=== PATIENT | female | born 2000 | race Caucasian/White ===

== ENCOUNTER 2023-08-16 19:50 | Emergency (ER) | payer OTHER, BC, MEDICAID, SELFPAY ==
[2023-08-16 19:54] VITALS: BP 157/95; PULSE 90; RESP 17; TEMP 36.8; O2SAT 100; BMI 28.3
[2023-08-16 21:00] VITALS: O2SAT 99
--- NOTE | 2023-08-16 21:23 | ED_ITS ---
HPI - COVID General: Chief Complaint: COVID symptoms Stated Complaint: coughing, congested Time Seen by Provider: 08/16/23 21:00 History of Present Illness: Patient presents to the ER for not feeling well having cough and congestion. Patient states she was around 2 people tested positive for COVID patient is worried she has COVID and like tested. Patient did take her home test that was positive but she wants further confirmation. COVID Results: SARS-CoV-2 Antigen (Rapid) positive (Negative) H 08/16/23 21:1 7 Review of Systems General: Reports: 10 or more systems reviewed and unremarkable except in HPI and below PFSH ED PFSH: Medical History Migraine headache Physical Exam Const: COMMON NORMALS: no acute distress, average body habitus, patient oriented x3, no limitations, healthy appearing, alert and well nourished HENMT: COMMON NORMALS: normocephalic, hearing grossly normal bilaterally, external ears normal, Normal external nose present and moist oral mucous membranes HEAD & SCALP: normocephalic NOSE: Normal external nose present EXTERNAL EAR: Yes external ears normal Neck/C-Spine: COMMON NORMALS: full ROM, no lymphadenopathy, supple, no meningeal signs, no JVD and Thyroid normal THYROID: Thyroid normal Chest: COMMONS NORMALS: normal inspection of the chest and normal palpation of entire chest wall Resp: COMMON NORMALS: normal respiratory effort, No retractions, No use of accessory muscles and clear to auscultation bilaterally AUSCULTATION: clear to auscultation bilaterally Cardio: COMMON NORMALS: no JVD, regular rate, regular rhythm, S1 normal heart sound present, S2 normal heart sound present, No gallops present (Cardio), No clicks present (Cardio), No murmurs present (Cardio) and No rub (Cardio) RATE: regular rate RHYTHM: regular rhythm HEART SOUNDS: S1 normal heart s ound present and S2 normal heart sound present GI: COMMON NORMALS: Normal to inspection, nondistended, normoactive bowel sounds present, Soft to palpation, non-tender, No hepatosplenomegaly present and no masses PALPATION: Yes Soft to palpation and Yes No hepatosplenomegaly present : COMMON NORMALS: Yes no CVA tenderness BLADDER/KIDNEY EXAM: Yes no CVA tenderness Back/Pelvis: COMMON NORMALS: no CVA tenderness Neuro: COMMON NORMALS: patient oriented x3 SENSORIUM/ORIENTATION: Yes alert MENINGEAL SIGNS: Yes no meningeal signs Course Vital Signs: Vital signs: Vital Signs Temperature 98.3 F 08/16/23 19:54 Pulse Rate 90 08/16/23 19:54 Respiratory Rate 17 08/16/23 19:54 Blood Pressure 157/95 08/16/23 19:54 Pulse Oximetry 99 08/16/23 21:00 Oxygen Delivery Me thod Room Air 08/16/23 21:00 MDM - COVID Medical Decision Making Patient took a home COVID test that was positive after being around 2 positive people. Patient wanted further confirmation. Anticipate that our test will be positive Patient did test COVID-positive. Patient be discharged home to follow- up with her PCP in approximately 7 days as needed. Differential Diagnosis Likely COVID 19; Unlikely influenza, other viral infection, bacterial infection, pneumonia, copd exacerbation, pulmonary embolism, NSTEMI/STEMI, CHF exacerbation, stroke, overdose/intoxication or other Medical Records I reviewed the patient's medical records. Lab Data I reviewed the patient's lab results. Laboratory Results SARS-CoV-2 Ag (Rapid) positive (Negative) H 08/16/23 21:17 SARS-CoV-2 Antigen (Rapid) positive (Negative) H 08/16/23 21:1 7 No radiology studies performed this visit Discharge Plan Discharge Patient Disposition: Home Clinical Impression: COVID-19 Condition: Stable Prescriptions: No Action sumatriptan succinate 50 mg tablet See Rx Instructions PO .COMPLEX PRN (Reason: migraine headache) Qty: 30 0RF Rx Instructions: take 1 tab at onset of headache; if no relief may repeat 1 tab after at least 2 hrs; max = 4 tabs/24 hr orally PRN; ibuprofen 800 mg tablet 800 mg PO Q8H PRN (Reason: pain) Qty: 30 0RF topiramate [Topamax] 25 mg tablet 25 mg PO DAILY PRN (Reason: migraine headache) Qty: 30 1RF Rx Instructions: Filled for Dr. Soto while he is out of clinic. Discharge Orders: Discharge ED (Routine); Ordered 08/16/23 Ordered By: Cral Sawyer Referrals: Annamaria Arias MD [Primary Care Provider] - 1 week Patient Instructions: COVID-19 (Coronavirus Disease 2019) (ED) Activity Restrictions/Additional Instructions: Please follow-up with your family practice physician in 7 days as needed for further evaluation and treatment. Stand Alone Forms: Work/School Release Coding Level of Care Code ED Department Head for Brock Nam
[2023-08-16 22:06] LABS: SARS Covid-2 Antigen positive (Negative)
[2023-08-16 22:34] VITALS: BP 139/89; PULSE 79; RESP 16; O2SAT 99
== END 2023-08-16 22:37 | disposition home or self-care (01) ==
PROVIDERS: Emergency Provider Emergency Medicine; PCP Family Medicine
DX: U07.1 COVID-19 (principal)
CPT/HCPCS: 87426; 99283

== ENCOUNTER → 2025-06-13 13:25 | Outpatient (BNVA) | payer OTHER, SELFPAY | PROVIDERS: PCP Family Medicine; Visit Provider Registered Nurse Neonatal Intensive Care | DX: N92.6 Irregular menstruation, unspecified (principal) | CPT/HCPCS: 81025 ==

== ENCOUNTER → 2025-06-16 15:40 | Outpatient (BNVA) | payer OTHER, SELFPAY | PROVIDERS: PCP Family Medicine; Visit Provider Nurse Practitioner Women's Health | DX: O26.893 Other specified pregnancy related conditions, third trimester (principal); Z3A.31 31 weeks gestation of pregnancy | CPT/HCPCS: 76805; 80307; 81025; 82950; 84443; 85025; 86592; 86762; 86803; 86850; 86900; 87086; 87340; 87491; 87591; 87661; 87806 ==

== ENCOUNTER → 2025-06-18 08:05 | Outpatient (BNVA) | payer OTHER, SELFPAY | PROVIDERS: PCP Family Medicine; Visit Provider Obstetrics & Gynecology | DX: Z34.90 Encounter for supervision of normal pregnancy, unspecified, unspecified trimester (principal) | CPT/HCPCS: 82951; 82952 ==

== ENCOUNTER → 2025-06-26 15:16 | Outpatient (BNVA) | payer OTHER, SELFPAY | PROVIDERS: PCP Family Medicine; Visit Provider Obstetrics & Gynecology | DX: O09.73 Supervision of high risk pregnancy due to social problems, third trimester (principal); O09.30 Supervision of pregnancy with insufficient antenatal care, unspecified trimester; O24.419 Gestational diabetes mellitus in pregnancy, unspecified control | CPT/HCPCS: 80307; 84315; 87086 ==

== ENCOUNTER → 2025-07-07 14:59 | Outpatient (BNVA) | payer OTHER, SELFPAY | PROVIDERS: PCP Family Medicine; Visit Provider Nurse Practitioner Women's Health | DX: Z34.90 Encounter for supervision of normal pregnancy, unspecified, unspecified trimester (principal) | CPT/HCPCS: 84315 ==

== ENCOUNTER → 2025-07-21 15:40 | Outpatient (BNVA) | payer OTHER, SELFPAY | PROVIDERS: PCP Family Medicine; Visit Provider Obstetrics & Gynecology | DX: Z34.03 Encounter for supervision of normal first pregnancy, third trimester (principal) | CPT/HCPCS: 87081 ==

== ENCOUNTER → 2025-07-29 08:00 | Outpatient (BNVA) | payer OTHER, SELFPAY | PROVIDERS: PCP Family Medicine; Visit Provider Nurse Practitioner Women's Health | DX: O09.30 Supervision of pregnancy with insufficient antenatal care, unspecified trimester (principal) | CPT/HCPCS: 84315 ==

== ENCOUNTER → 2025-08-04 12:22 | Outpatient (BNVA) | payer OTHER, SELFPAY | PROVIDERS: PCP Family Medicine; Visit Provider Obstetrics & Gynecology | DX: O09.30 Supervision of pregnancy with insufficient antenatal care, unspecified trimester (principal) | CPT/HCPCS: 84315 ==

== ENCOUNTER 2025-08-13 16:15 | Outpatient (CLI) | payer OTHER, SELFPAY ==
[2025-08-13 16:10] VITALS: BMI 38.0
[2025-08-13 16:36] VITALS: BP 115/70; PULSE 79
[2025-08-13 17:06] VITALS: BP 105/55; PULSE 75
[2025-08-13 17:21] VITALS: BP 101/57; PULSE 78
[2025-08-13 17:36] VITALS: BP 101/57; PULSE 78; RESP 17; O2SAT 98
== END 2025-08-13 17:36 | disposition home or self-care (01) ==
LOC: OPOB 16:15 → OBGYN 16:18
PROVIDERS: PCP Family Medicine; Visit Provider Obstetrics & Gynecology
DX: O26.899 Other specified pregnancy related conditions, unspecified trimester (principal); Z3A.00 Weeks of gestation of pregnancy not specified
CPT/HCPCS: 59025; 84315; 99211

== ENCOUNTER 2025-08-16 15:35 | Outpatient (CLI) | payer OTHER, SELFPAY ==
[2025-08-16 15:47] VITALS: BP 118/75; PULSE 100
[2025-08-16 15:52] VITALS: BMI 32.5
[2025-08-16 16:03] VITALS: BP 110/59; PULSE 79
[2025-08-16 16:17] VITALS: BP 110/67; PULSE 71
== END 2025-08-16 16:35 | disposition home or self-care (01) ==
LOC: OPOB 15:37 → OBGYN 15:38
PROVIDERS: PCP Family Medicine; Visit Provider Obstetrics & Gynecology
DX: O26.899 Other specified pregnancy related conditions, unspecified trimester (principal); Z3A.00 Weeks of gestation of pregnancy not specified
CPT/HCPCS: 59025; 99211

== ENCOUNTER 2025-08-18 11:55 | Outpatient (CLI) | payer OTHER, MEDICAID, SELFPAY ==
--- NOTE | 2025-08-18 13:00 | USR_ITS ---
PROCEDURE INFORMATION: Exam: US , Follow up Exam date and time: 08/18/2025 12:32 PM Age: 24 years old Clinical indication: Screening exam; Routine US, uterus; Additional info: O09.30 - supervision of with insufficient anten. . . LABS AND CLINICAL REPORTS: Gestational age (Established): 40 w 4 d Estimated due date (Established): 08/14/2025 TECHNIQUE: Imaging protocol: Transabdominal ultrasound of the uterus, real time with image documentation. Follow-up (eg, re-evaluation of size by measuring standard growth parameters and amniotic fluid volume, re-evaluation of organ system(s) suspected or confirmed to be abnormal on a previous scan). COMPARISON: US OB >= 14 weeks fetus [id number] 06/16/2025 3:53 PM FINDINGS: Gestation: Intrauterine gestation. heart rate: 129 bpm presentation and position: Cephalic. Placenta: Anterior. Amniotic fluid index: GABBY is 8.71 cm. BIOMETRY: Gestational age (AUA): 39 weeks 6 days. Estimated weight: 4031.7 g. EFW by AC, BPD, FL, HC, Hadlock 1985 Biparietal diameter (BPD): 9.48 cm. EGA (BPD) is 38 w 5 d. 0 % percentile Head circumference (HC): 34.13 cm. EGA (HC) is 39 w 2 d. 0 % percentile Abdominal circumference (AC): 36.89 cm. EGA (AC) is 40 w 6 d. 0 % percentile Femur length (FL): 7.91 cm. EGA (FL) is 40 w 3 d. 0 % percentile HC/AC: 0.93. (Normal range: 0.9 - 1.03) FL/HC: 23.18. (Normal range: 20.69 - 22.63) FL/BPD: 83.44. (Normal range: 71 - 87) FL/AC: 21.44. (Normal range: 20 - 24) BIOPHYSICAL PROFILE: Biophysical profile score (BPP): 07/04 US/US OB F/U w BPP wo NST IMPRESSION: 1. Single live intrauterine gestation with normal heart rate. 2. Estimated gestational age 39 weeks 6 days. 3. Biophysical profile 07/04.
== END 2025-08-18 11:56 | disposition home or self-care (01) ==
LOC: RAD 12:01
PROVIDERS: PCP Family Medicine; Visit Provider Obstetrics & Gynecology
DX: O09.33 Supervision of pregnancy with insufficient antenatal care, third trimester (principal)
CPT/HCPCS: 76816; 76819; 84315

== ENCOUNTER 2025-08-18 18:03 | Inpatient (IN) | payer OTHER, MEDICAID, SELFPAY ==
[2025-08-18] VITALS (16 sets, daily range): BP systolic 96–143; BP diastolic 55–85; PULSE 78–126; BMI 32.7
--- NOTE | 2025-08-18 17:54 | PM.OBGYHP ---
Providers/Chief Complaint Admitting Physician: Marjorie Tran DO Primary DEBONING TEAM LEADER: Stacie Warner MD Primary Care Provider: Annamaria Arisa MD Chief Complaint: increased blood pressure HPI DEBONING TEAM LEADER History of Present Illness Berenice Bourgeois is a 24 year old female G1, P0 at 40.4 weeks gestation by 31-week ultrasound, LUIS 08/14/2025. Patient was seen for appointment today in the clinic with an elevated blood pressure noted. Patient was sent to labor and delivery for observation. Blood pressure was normal and observation but with elevated BP in the clinic and patient being 40.4 weeks gestation, I discussed with patient induction of labor for delivery. Risk of further increase in her blood pressure with a postdates could lead to nonreassuring monitoring. Discussion of vaginal delivery if cervix responds to ripening followed by response during induction versus indications if nonreassuring monitoring which could possibly lead to section. Patient understands and agrees. Patient has history of migraine headaches, she has not taken Topamax in over 2 years. She denies any medical problems. Present Details : 1 Para: 0 Labs Rubella: Immune RPR: Negative GBS: Negative Review of Systems General: Reports: 10 or more systems reviewed and unremarkable except in HPI and below Medications/Allergies Home Medications ?Medication ?Instructions ?Recorded ?Confirmed ?Last Taken ?Type blood-glucose meter (Blood Glucose #1 ea 06/19/25 08/18/25 Unknown Rx Monitoring kit) mv-mn no.97-folic 180 mcg-dha 25 tab PO DAILY 07/21/25 08/18/25 Unknown History mg-herb no.293 25 mg chewable tablet (Alive Daily Support ) Allergies Allergy/AdvReac Type Severity Reaction Status Date / Time No Known Allergies Allergy Verified 08/18/25 16:07 PFSH DEBONING TEAM LEADER PFSH: Medical History Migraine headache Family History Grandmother Breast cancer Diabetes Hypertension Thyroid disease Mother Colon cancer Diabetes Hypertension Thyroid disease Sister Diabetes Thyroid disease Father Thyroid disease Grandfather Thyroid disease Denies family history of Ovarian cancer Prostate cancer Heart disease Hyperlipidemia Uterine cancer Stroke Social History Smoking and tobacco/nicotine status: never used tobacco/nicotine Sexual History: STD History Comment: History of chlamydia treated . Have you ever tested positive for HIV?: No History History History 1 Term 1 0 Miscarriages/Ectopic 0 Living Children 0 Care LUIS Calculator Estimated Delivery Date Method Current WG Current Estimate 08/14/25 Ultrasound #1 40w 4d Other Estimates 08/14/25 LMP (Uncertain) 40w 4d Specific Issues/Plans LATE TO CARE (31 WEEKS) GESTATIONAL DIABETES CHLAMYDIA INFECTION--TREATED WITH AZITHROMYCIN ON 06/18/25 GROUP B STREP NEGATIVE Vitals/I&O/Wt Last Vital Signs Pulse 126 H 08/18/25 17:21 BP 122/77 08/18/25 17:21 O2 Del Method Room Air 08/18/25 17:28 Weight last 48 hrs Weight 73.482 kg Physical Exam Narrative: 24-year-old female alert and orient x 3 in no acute distress. HENMT: COMMON NORMALS: normocephalic, moist oral mucous membranes and dentition normal Resp: COMMON NORMALS: normal respiratory effort and clear to auscultation bilaterally Cardio: COMMON NORMALS: regular rate, regular rhythm and No murmurs present (Cardio) Back/Pelvis: OTHER: Abdomen?soft, gravid, no tenderness to palpation Extremity: COMMON NORMALS: normal to inspection, no clubbing, cyanosis or edema and no calf tenderness Neuro: COMMON NORMALS: patient oriented x3, CN's II-XII intact bilaterally, moves all extremities and deep tendon reflexes 2+ bilaterally Psych: COMMON NORMALS: mental status grossly normal, cooperative and normal affect Results Labs OB ([facility]): Obstetrics US Today Blood Type O Positive 06/16/25 Antibody Screen Negative 06/16/25 Hct, (36-47) 34.2 % L 06/16/25 Hgb, (11.27-16.99) 11.20 g/dL L 06/16/25 Rho(D) Type Rh positive 06/16/25 Plt Count, (157-399) 350 10^3/cmm 06/16/25 Hep Bs Antigen, (Nonreactive) Non-reactive 06/16/25 Hepatitis C Antibody, (Nonreactive) Non-reactive 06/16/25 Rubella IgG Antibody, (0.0-10.0) 173.2 IU/mL H 06/16/25 RPR, (Nonreactive) Nonreactive 06/16/25 HIV 1&2 Ab & HIV 1 Ag, (Non-Reactiv) Non-reactive 06/16/25 TSH, (0.27-4.20) 1.09 uIU/mL 06/16/25 Glucose 1 Hr 50 gm, (85-140) 146 mg/dL H 06/16/25 Gest Glucose Tolerance mg/dL 06/18/25 HCG, Qual, (Negative) Positive H 06/16/25 Urine Opiates Screen, (Negative) Negative ng/mL 06/26/25 Ur Barbiturates Screen, (Negative) Negative ng/mL 06/26/25 Ur Phencyclidine Scrn, (Negative) Negative ng/mL 06/26/25 Ur Amphetamines Screen, (Negative) Negative ng/mL 06/26/25 U Benzodiazepines Scrn, (Negative) Negative ng/mL 06/26/25 Urine Cocaine Screen, (Negative) Negative ng/mL 06/26/25 U Marijuana (THC) Screen, (Negative) Negative ng/mL 06/26/25 Micro Urine Specimen 06/26/25 A&P Assessment and plan 1. 40 weeks gestation of : Admit to labor and delivery for cervical ripening/induction of labor. 2. Elevated blood pressure affecting in first trimester, antepartum: 3. Late care affecting , antepartum: 4. Chlamydia infection affecting : 5. Diet controlled gestational diabetes mellitus (GDM), antepartum: 6. Migraine headache: PDMP PDMP Reviewed: Not Reviewed Attestations Medical Necessity Statement*: Patient was admitted to labor and delivery after elevated blood pressures in the clinic at 40.3 weeks gestation Coding Level of Care Code Acute Code for Chg Fwd Diagnoses 40 weeks gestation of Z3A.40 Elevated blood pressure affecting in first trimester, antepartum O16.1 Late care affecting , antepartum O09.30 Trimester: unspecified trimester Chlamydia infection affecting O98.819; A74.9 Diet controlled gestational diabetes mellitus (GDM), antepartum O24.410 Gestational diabetes mellitus control: diet-controlled Trimester: unspecified trimester Migraine headache G43.909
[2025-08-18 17:58] LABS: Hematocrit 33.5 % (36-47); Hemoglobin 11.20 g/dL (11.27-16.99); Mean Corpuscular HGB Conc 33.4 g/dL (30-55); Mean Corpuscular Hemoglobin 25.9 pg (27-33); Mean Corpuscular Volume 77.4 fl (85-98); Nucleated Red Blood Cells % 0 %; Platelet Count 308 10^3/cmm (157-399); Red Blood Count 4.33 10^6/uL (3.85-5.65); White Blood Count 7.92 10^3/uL (3.29-11.43)
[2025-08-18 22:03] LABS: Neisseria Gonorrhea NOT DETECTED (Negative)
[2025-08-19] VITALS (80 sets, daily range): BP systolic 83–131; BP diastolic 51–86; PULSE 65–122; RESP 16; TEMP 36.5–37; O2SAT 97–100
--- NOTE | 2025-08-19 04:41 | P.PN_ITS ---
FRENCH PROFESSOR Subjective 2 Subjective: Interval history: 24yo female at 40.3 wk IUP admitted yest erday for IOL for elevated BP and Postdates. Pt received Cytotec for Cervical Ripening x 2 doses and cervical change has been minimal. Nursing staff called regarding decreased variability and Uterus Tachysystole. Order for IV fluid bolus and Terbutaline 0.25mg SQ given.Upon arrival Nursing staff unable to given Terbutaline d/t Pixus issues and Pharmacy not inhouse. EFM strip reviewed- Minimal variability continues, this was reviewed with pt. Possibility of C/S if no improvement after Terbutaline given. Pt understands. Labor: Station: -2 Amniotic Membrane Status: Intact Monitor Mode: External Contraction Pattern: Irregular Vitals/I&O/Wt Last Vital Signs Temp 97.7 F 08/19/25 04:04 Pulse 77 08/19/25 04:38 BP 128/75 08/19/25 04:30 Pulse Ox 98 08/19/25 04:38 O2 Del Method Room Air 08/18/25 17:28 Weight last 48 hrs Weight 73.482 kg Data 08/18/25 17:45 A&P PDMP PDMP Reviewed: Not Reviewed Attestations 2 Medical Necessity Statement*: Pt admitted for IOL d/t Elevated BP and Postdates. Coding Level of Care Code Acute Code for Chg Fwd
--- NOTE | 2025-08-19 05:19 | P.PN_ITS ---
BUSINESS UNIT MANAGER Subjective 2 Subjective: Interval history: Pt EFM reviewed after Terbutaline given and Acustic stimulation with HR 120-150 noted. Advised pt of Risk with continued IOL, and advised that i think best outcome is to proceed with C/S. Pt understands. Risk of Bleeding, Infection, Pelvic organ injury and decreased well being if we don't do C/S. Anesthesia will reviewed their med risk . Pt and understands. Labor: Station: -2 Amniotic Membrane Status: Intact Monitor Mode: External Contraction Pattern: Irregular Vitals/I&O/Wt Last Vital Signs Temp 97.7 F 08/19/25 04:04 Pulse 115 H 08/19/25 05:13 BP 131/79 08/19/25 05:00 Pulse Ox 99 08/19/25 05:13 O2 Del Method Room Air 08/18/25 17:28 08/18/25 08/18/25 08/19/25 14:59 22:59 06:59 Intake Total 1000 / 1000 Balance 1000 / 1000 Weight last 48 hrs Weight 73.482 kg Data 08/18/25 17:45 A&P Assessment and plan 1. Non-reassuring electronic monitoring tracing: Prepare for Primary C/S. 2. Elevated blood pressure affecting in first trimester, antepartum: 3. 40 weeks gestation of : 4. Late care affecting , antepartum: 5. Chlamydia infection affecting : 6. Diet controlled gestational diabetes mellitus (GDM), antepartum: PDMP PDMP Reviewed: Not Reviewed Attestations 2 Medical Necessity Statement*: Pt admitted for IOL, now preparing for Section. Coding Level of Care Code Acute Code for Chg Fwd Diagnoses Non-reassuring electronic monitoring tracing O36.8390 Elevated blood pressure affecting in first trimester, antepartum O16.1 40 weeks gestation of Z3A.40 Late care affecting , antepartum O09.30 Trimester: unspecified trimester Chlamydia infection affecting O98.819; A74.9 Diet controlled gestational diabetes mellitus (GDM), antepartum O24.410 Gestational diabetes mellitus control: diet-controlled Trimester: unspecified trimester
--- NOTE | 2025-08-19 05:30 | ANES.PREANE2 ---
Pre-Anesthetic Assessment Height/Weight: Height 1.5 m Weight 73.482 kg Temp Pulse BP Pulse Ox O2 Del Method 97.7 F 91 97/56 98 Room Air 08/19/25 04:04 08/19/25 10:03 08/19/25 09:56 08/19/25 10:03 08/18/25 17:28 Preop Diagnosis: IUP Operation Date: 08/19/25 06:00 Proposed Procedures p Section(Not Applicable) - Marjorie Tran DO Familial anesthetic complications: none Was Beta Gama taken within 24 hours: N/A Was Clonidine taken within 24 hours: N/A Last intake: Miky shaikh 0200 - discussed NPO time with animal care taker, nonreassuring status necessitates forgoing 8 hr NPO interval Exam alert, oriented x 3, clear to auscultation bilaterally and regular rate & rhythm Anesthetic Plan ASA status: 2E Anesthesia: Regional (specify below) Other: spinal Risk of > 500 ml blood loss (7ml/kg in children): Yes, adequate IV access and fluids planned Medications/Allergies Home Medications ?Medication ?Instructions ?Recorded ?Confirmed ?Last Taken ?Type blood-glucose meter (Blood Glucose #1 ea 06/19/25 08/18/25 Unknown Rx Monitoring kit) mv-mn no.97-folic 180 mcg-dha 25 tab PO DAILY 07/21/25 08/18/25 Unknown History mg-herb no.293 25 mg chewable tablet (Alive Daily Support ) Allergies Allergy/AdvReac Type Severity Reaction Status Date / Time No Known Allergies Allergy Verified 08/18/25 16:07 Current Medications Generic Name Dose Route Start Last Admin Trade Name Freq PRN Reason Stop Dose Admin Dextrose/Lactated Ringer's 1,000 mls @ 125 mls/hr 08/18/25 17:30 08/19/25 05:30 Dextrose 5%-Lactated Ringers IV 0 mls/hr .Q8H MAGI Infusion Sodium Chloride 1,000 mls @ 999 mls/hr 08/18/25 17:28 08/19/25 06:31 Sodium Chloride 0.9% IV Infused .Q1H1M PRN Infusion Per L&D Rescitation Protocol [facility] Anesthesia Medical History (Updated 08/19/25 @ 05:25 by Marjorie Tran DO) Migraine headache Family History Grandmother Breast cancer Diabetes Hypertension Thyroid disease Mother Colon cancer Diabetes Hypertension Thyroid disease Sister Diabetes Thyroid disease Father Thyroid disease Grandfather Thyroid disease Denies family history of Ovarian cancer Prostate cancer Heart disease Hyperlipidemia Uterine cancer Stroke Social History Smoking and tobacco/nicotine status: never used tobacco/nicotine Female Reproductive History : 1 Data Anesthesia 08/18/25 17:45 Short CBC 08/18/25 Range/Units 17:45 WBC 7.92 (3.29-11.43) 10^3/uL Hgb 11.20 L (11.27-16.99) g/dL Hct 33.5 L (36-47) % MCV 77.4 L (85-98) fl Plt Count 308 (157-399) 10^3/cmm Neut % (Auto) 73.3 % Neut # (Auto) 5.81 (1.8-7.7) 10^3/uL Blood Bank 08/18/25 17:45 Blood Type O Positive Rho(D) Type Rh positive Antibody Screen Negative
[2025-08-19] MEDS: metoclopramide 5 mg/mL SDV 2 mL 10 MG IVP (05:48)
[2025-08-19] MEDS: ceFAZolin 2,000 mg SDV 2000 MG IVP (06:10)
--- NOTE | 2025-08-19 07:13 | P.PCNOB_ITS ---
Delivery Note: Date of delivery: August 19, 2025 Pre-delivery diagnoses: 40.3 wk IUP NRFM Late 3rd Trimester Care Elevated BP GDM Post-delivery diagnoses: Viable Female with NC x2 Procedure: Primarty C/S due to NRFM Op report anesthesia: Spinal Delivering Physician: Marjorie Tran Estimated blood loss (mL): 1,000 Findings: Viable Female Post Delivery Diagnoses: Late care affecting , antepartum: Qualifiers: Trimester: unspecified trimester Diet controlled gestational diabetes mellitus (GDM), antepartum: Qualifiers: Gestational diabetes mellitus control: diet-controlled Trimester: unspecified trimester Pre-Delivery Course: 24-year-old female G1, P0 admitted to [facility] and delivery for induction of labor after being seen in the clinic with elevated blood pressure at 40.3 weeks gestation. Patient received 2 doses of Cytotec for cervical ripening when she encountered decreased variability and several late decelerations. IV fluid hydration resolved the late decelerations but variability remained minimal. Uterine tachysystole occurred and was treated with terbutaline 0.25 mg subcu. Minimum variability remained therefore patient was counseled on primary section delivery. Delivery: Patient had been counseled on nonreassuring monitoring and advised to proceed with section delivery. Patient is a 24-year-old G1 now P1 that was delivered via primary section. Patient was taken back to surgical suite prepped for spinal anesthesia. Patient was laying in a supine position with left lateral tilt heart tones in the 120s. The abdomen was prepped and draped and Sorto catheter placed in the bladder. Fenistil incision was made in the skin and extended to the fascia. The fascia was incised and the incision lateralized. The rectus muscles was dissected superiorly and inferiorly and the peritoneum opened bluntly. A bladder flap was created with Metzenbaums and pickups and displaced with a bladder blade. A low transverse uterine incision was made with a knife and extended laterally. The vertex was delivered through the incision atraumatically and a nuchal cord x 2 was easily reduced. The anterior followed by the posterior shoulders delivered with remained the baby's body to follow. Spontaneous robust cry resulted. The umbilical cord was clamped and cut and baby handed off to waiting nursing staff and tying machine operator lumber. A segment of the cord was clamped and handed off for pH to be drawn. IV Pitocin solution was started in a bolus manner the placenta was manually removed the uterus exteriorized and wiped clean with a moist lap sponge. Uterine incision was closed with 0 Vicryl in a running interlocking stitch with good approximation and hemostasis. The uterus was massaged and firmed well. The posterior cul-de-sac and sidewalls were wiped clean with a moist lap sponge the uterine incision evaluated and noted to be intact hemostatically. The uterus was replaced in the abdomen and the peritoneum and rectus muscle approximated with 2-0 Vicryl. The fascia was approximated with 0 Vicryl in a running stitch. The subcu fat approximated with 2-0 Vicryl and the skin closed with 4-0 Vicryl in a subcuticular manner. The incision was cleansed and dried uterus and vaginal vault expressed. 8/9 weight 7 pounds 9 complications?none Needle and instrument count correct x 2 Mother and are both in stable and satisfactory condition. Post-Delivery Status: Stable History History History 1 Term 1 0 Miscarriages/Ectopic 0 Living Children 1 A&P Assessment and plan 1. Delivery by section: Viable female nuchal cord x 2 2. Non-reassuring electronic monitoring tracin. Elevated blood pressure affecting in first trimester, antepartum: 4. 40 weeks gestation of : 5. Late care affecting , antepartum: 6. Chlamydia infection affecting : 7. Diet controlled gestational diabetes mellitus (GDM), antepartum: PDMP PDMP Reviewed: Not Reviewed Coding Level of Care Code Acute Code for Chg Fwd Diagnoses Delivery by section Non-reassuring electronic monitoring tracing O36.8390 Elevated blood pressure affecting in first trimester, antepartum O16.1 40 weeks gestation of Z3A.40 Late care affecting , antepartum O09.30 Trimester: unspecified trimester Chlamydia infection affecting O98.819; A74.9 Diet controlled gestational diabetes mellitus (GDM), antepartum O24.410 Gestational diabetes mellitus control: diet-controlled Trimester: unspecified trimester
--- NOTE | 2025-08-19 08:55 | PC.NURSE ---
Hotline call made due to inadequate care. First appointment was May 2025 at estimated 31 weeks after ultrasound at this time.
--- NOTE | 2025-08-19 10:08 | ANE.PACU2 ---
Inpatient post-anesthesia follow up: Airway intact: Yes Vital signs: Temperature 97.7 F Pulse Rate 91 Respiratory Rate Blood Pressure 97/56 Pulse Oximetry 98 Oxygen Delivery Me thod Room Air Oxygen Flow Rate Fraction of Inspir ed Oxygen Hydration adequate: Yes Nausea and vomiting: No Pain level: 1 Mental status: Baseline
[2025-08-19 18:36] LABS: Hematocrit 26.3 % (36-47); Hemoglobin 8.60 g/dL (11.27-16.99); Mean Corpuscular HGB Conc 32.7 g/dL (30-55); Mean Corpuscular Hemoglobin 25.3 pg (27-33); Mean Corpuscular Volume 77.4 fl (85-98); Platelet Count 301 10^3/cmm (157-399); Red Blood Count 3.40 10^6/uL (3.85-5.65); White Blood Count 9.42 10^3/uL (3.29-11.43)
[2025-08-20 02:21] VITALS: BP 107/67; PULSE 69
[2025-08-20] MEDS: ferrous sulfate EC 325 mg Tablet PO (09:09)
[2025-08-20] MEDS: PRENATAL VIT NO.130/IRON/FOLIC 1 EACH TABLET PO (09:09)
[2025-08-20 09:11] VITALS: BP 122/73; PULSE 106
--- NOTE | 2025-08-20 10:03 | PM.OBGYPN ---
RECREATIONAL THERAPY TECHNICIAN Subjective Subjective: Interval history: 24-year-old female G1, P1 s/p primary low-transverse section after IOL with nonreassuring monitoring. Patient is ambulating in room, tolerating a regular diet. Patient denies headaches, blurred vision, chest pain or shortness of breath. She denies excessive vaginal bleeding. Patient has required no hypertensive meds. Postop expectations has been reviewed to include no heavy lifting pushing or pulling no sex douching or tampons x 6 weeks. Patient is encouraged to ambulate to decrease the risk of pneumonia and DVT. Patient has been encouraged to continue a healthy diet, and daily walking for she is at risk for diabetes and hypertension later in life. Patient understands. VSS, afebrile Labor: Station: -2 Amniotic Membrane Status: Intact Monitor Mode: External Contraction Pattern: Irregular Vitals/I&O/Wt Last Vital Signs Temp 98.6 F 08/19/25 12:30 Pulse 106 H 08/20/25 09:11 Resp 16 08/19/25 12:30 BP 122/73 08/20/25 09:11 Pulse Ox 98 08/19/25 10:08 O2 Del Method Room Air 08/18/25 17:28 08/19/25 08/20/25 08/20/25 22:59 06:59 14:59 Intake Total 500 / 2100 Output Total 250 / 1950 Balance 250 / 150 Weight last 48 hrs Weight 73.482 kg Physical Exam Const: COMMON NORMALS: patient oriented x3 Cardio: COMMON NORMALS: regular rate and regular rhythm RATE: regular rate RHYTHM: regular rhythm Back/Pelvis: OTHER: Abdomen?soft, fundus well below umbilicus. Incision?clean dry and intact. Lochia?light Extremity: COMMON NORMALS: normal to inspection, no clubbing, cyanosis or edema and no calf tenderness Neuro: COMMON NORMALS: patient oriented x3, CN's II-XII intact bilaterally, moves all extremities and deep tendon reflexes 2+ bilaterally Urinary Catheter Management: Sorto: Cath Placed During This Visit: yes, but has since been removed by the nurse Reason for Continuing Indwelling Catheter: Decision to DC Catheter Urinary Catheter Date of Insertion: 08/19/25 Urinary Catheter Time of Insertion: 06:20 Date Urinary Catheter Removed: 08/19/25 Time Urinary Catheter Discontinued: 16:31 Data 09/23/25 18:30 A&P Assessment and plan 1. Acute blood loss anemia: 2. Delivery by section: 3. Non-reassuring electronic monitoring tracin. Elevated blood pressure affecting in first trimester, antepartum: 5. 40 weeks gestation of : 6. Diet controlled gestational diabetes mellitus (GDM), antepartum: Will check a fasting blood sugar in the a.m. of 08/21/2025 before discharge. PDMP PDMP Reviewed: Not Reviewed Attestations Medical Necessity Statement*: Patient admitted to labor and delivery for induction of labor, delivered via primary section. Postop day #1 with no complications. Will continue care.. Coding Level of Care Code Acute Code for Chg Fwd Diagnoses Acute blood loss anemia D62 Delivery by section Non-reassuring electronic monitoring tracing O36.8390 Elevated blood pressure affecting in first trimester, antepartum O16.1 40 weeks gestation of Z3A.40 Diet controlled gestational diabetes mellitus (GDM), antepartum O24.410 Gestational diabetes mellitus control: diet-controlled Trimester: unspecified trimester
[2025-08-20 15:45] VITALS: BP 132/76; PULSE 99; RESP 16; TEMP 36.6
[2025-08-20 21:07] VITALS: BP 122/57; PULSE 82; RESP 16; TEMP 36.8; O2SAT 99
[2025-08-21 04:44] VITALS: BP 108/68; PULSE 79; RESP 16; TEMP 36.7; O2SAT 99
[2025-08-21] MEDS: HYDROcodone-acetaminophen 5-325 mg Tablet PO (07:18)
[2025-08-21] MEDS: ferrous sulfate EC 325 mg Tablet PO (07:19)
--- NOTE | 2025-08-21 07:43 | P.DS_ITS ---
Discharge Providers Date of Admission: 08/18/25 18:03 Date of Discharge: August 21, 2025 Attending Provider at Admission: Marjorie Tran DO Attending Provider at Discharge: Jason Nixon MD Primary Care Provider: Annamaria Arias MD Diagnoses at Discharge Discharge Diagnosis 1. Acute blood loss anemia: 2. Delivery by section: 3. Non-reassuring electronic monitoring tracin. Elevated blood pressure affecting in first trimester, antepartum: 5. 40 weeks gestation of : 6. Diet controlled gestational diabetes mellitus (GDM), antepartum: Reason for Visit Reason for Visit: increased blood pressure Brief History: Berenice is a 24-year-old G1 now P1 status post primary low-transverse section at 40.4 weeks gestation. Her was complicated by elevated blood pressure at clinic the day of admission, gestational diabetes diet- controlled, history of chlamydia with test of cure. The patient was admitted for induction of labor and received 2 doses of Cytotec. She then began to have heart tone decelerations. IV hydration and position changes were attempted, however uterine tachysystole occurred. Terbutaline was given, but minimal variability was persistent so Dr. Tran felt that it was best to take her back for a primary low-transverse section. Hospital Course Hospital Course The patient had an uncomplicated primary low-transverse section. She delivered a healthy female weighing 7 pounds 9 ounces with Apgars of 8 and 9. 2 nuchal cords were noted. , the patient has done well and the patient's bleeding is decreasing well. Her pain is currently well- controlled. She has no concern for infection. She is ambulating, voiding, passing gas and tolerating food by mouth. Routine discharge instructions were d iscussed. All questions were answered. The patient requests for discharge home today. She is stable to do so at this time. She will plan to follow-up with Dr. Warner as an outpatient. Physical Exam Narrative: General: Alert and oriented x3 Cardiac: Regular rate and rhythm without murmurs Lungs: Clear to auscultation bilaterally without wheezes, crackles or rhonchi Abdomen: Soft, mild tenderness over uterus. The uterus is firm and 2 cm below the umbilicus. Incision is clean and dry without signs of infection or dehiscence. Extremities: Trace edema in the bilateral lower extremities Urinary Catheter Management: Sorto: Cath Placed During This Visit: yes, but has since been removed by the nurse Reason for Continuing Indwelling Catheter: Decision to DC Catheter Urinary Catheter Date of Insertion: 08/19/25 Urinary Catheter Time of Insertion: 06:20 Date Urinary Catheter Removed: 08/19/25 Time Urinary Catheter Discontinued: 16:31 Discharge Data Studies Completed and Pending Pending at discharge Category Date Time Status Pathology: Surgical [PTH] Routine Pth 08/19/25 07:03 Received Laboratory Results WBC 9.42 10^3/uL (3.29-11.43) 08/19/25 18:30 RBC 3.40 10^6/uL (3.85-5.65) L 08/19/25 18:30 Hgb 8.60 g/dL (11.27-16.99) L 08/19/25 18:30 Hct 26.3 % (36-47) L 08/19/25 18:30 MCV 77.4 fl (85-98) L 08/19/25 18:30 MCH 25.3 pg (27-33) L 08/19/25 18:30 MCHC 32.7 g/dL (30-55) 08/19/25 18:30 RDW 13.5 % (12.1-15.1) 08/19/25 18:30 Plt Count 301 10^3/cmm (157-399) 08/19/25 18:30 MPV 10.4 fL (7.4-10.4) 08/19/25 18:30 Neut % (Auto) 73.3 % 08/18/25 17:45 Lymph % (Auto) 18.1 % 08/18/25 17:45 [place] % (Auto) 6.2 % 08/18/25 17:45 Eos % (Auto) 1.5 % 08/18/25 17:45 Baso % (Auto) 0.6 % 08/18/25 17:45 Neut # (Auto) 5.81 10^3/uL (1.8-7.7) 08/18/25 17:45 Lymph # (Auto) 1.4 10^3/uL (0.8-4.8) 08/18/25 17:45 [place] # (Auto) 0.5 10^3/uL (0.2-0.9) 08/18/25 17:45 Eos # (Auto) 0.1 10^3/uL (0.0-0.8) 08/18/25 17:45 Baso # (Auto) 0.1 10^3/uL (0.0-0.1) 08/18/25 17:45 Nucleated RBC % (auto) 0 % 08/18/25 17:45 Nucleated RBCs # 0.0 /100WBC 08/18/25 17:45 C. trachomatis (PCR) Not detected (Negative) 08/18/25 20:00 N. gonorrhoeae (PCR) Not detected (Negative) 08/18/25 20:00 Blood Type O Positive 08/18/25 17:45 Rho(D) Type Rh positive 08/18/25 17:45 Antibody Screen Negative 08/18/25 17:45 Vitals Last Vital Signs Temp 98.1 F 08/21/25 04:44 Pulse 79 08/21/25 04:44 Resp 16 08/21/25 04:44 BP 108/68 08/21/25 04:44 Pulse Ox 99 08/21/25 04:44 O2 Del Method Room Air 08/21/25 04:44 Discharge Plan Discharge Patient Disposition: Home Condition: Good Prescriptions: New hydrocodone-acetaminophen 5-325 mg Tablet 1 tab PO Q6H PRN (Reason: Moderate To Severe Pain) Qty: 10 0RF ferrous sulfate 325 mg (65 mg iron) Tablet,Delayed Release (Dr/Ec) 325 mg PO BIDWM Qty: 30 0RF ibuprofen 800 mg Tablet 800 mg PO TID Qty: 60 0RF Continued Alive Daily Support 180 mcg-25 mg- 25 mg tablet,chewable PO DAILY No Action (DME) blood-glucose meter [Blood Glucose Monitoring] Kit See Rx Instructions .MEDSUPPLY Qty: 1 0RF Rx Instructions: please include test strips, lancets, and alcohol wipes Discharge Order = DC NOW: Discharge Order (Routine); Ordered 08/21/25 Ordered By: Jason Nixon Referrals: Uri Warner MD [Physician, COMMUNITY SERVICE WORKER] - 7-10 days Discharge Diet: Regular Discharge Activity: Limit activity as instructed Patient Instructions: Depression (DC), Opioid Safety (DC), Preeclampsia and Eclampsia After Delivery (GEN), Hemorrhage (DC), OB [facility], OB Discharge Report, OB Food/Drug Interaction Guide, Opioid Safety, OB Home Care, Patient Portal & Marco Instructions, Abnormal Bleeding Activity Restrictions/Additional Instructions: Do not lift anything heavier than her infant in the car seat for the first 3 weeks, then gradually increase to full lifting by 6 weeks. Nothing per vagina for 6 weeks. No driving for 2 weeks. Showers are preferred instead of baths for the first 6 weeks. If you have any concern for infection in your incision site, please seek immediate medical attention. Discharge Attestations Time Spent in Discharge Care*: less than 30 min Quality Metrics Clinical Quality Measures [ No reported AMI, CVA or VTE this stay] Coding Level of Care Code Acute Code for Chg Fwd Diagnoses Acute blood loss anemia D62 Delivery by section Non-reassuring electronic monitoring tracing O36.8390 Elevated blood pressure affecting in first trimester, antepartum O16.1 40 weeks gestation of Z3A.40 Diet controlled gestational diabetes mellitus (GDM), antepartum O24.410 Gestational diabetes mellitus control: diet-controlled Trimester: unspecified trimester
[2025-08-21] MEDS: PRENATAL VIT NO.130/IRON/FOLIC 1 EACH TABLET PO (10:43)
[2025-08-21 11:26] VITALS: BP 109/61; PULSE 77; RESP 16; TEMP 36.8
== END 2025-08-21 11:20 | disposition home or self-care (01) | DRG 786 ==
LOC: OPOB 08-19 04:18 → OBGYN 08-19 04:18
PROVIDERS: Admitting Provider Obstetrics & Gynecology; PCP Family Medicine; Visit Provider Obstetrics & Gynecology
PROC: 10D00Z1 Extraction of Products of Conception, Low, Open Approach (ICD-10-PCS; CPT 59514; principal; 2025-08-19 06:00)
DX: O48.0 Post-term pregnancy (principal); O99.42 Diseases of the circulatory system complicating childbirth; O98.82 Other maternal infectious and parasitic diseases complicating childbirth; D62 Acute posthemorrhagic anemia; Z3A.40 40 weeks gestation of pregnancy; O09.30 Supervision of pregnancy with insufficient antenatal care, unspecified trimester; O98.819 Other maternal infectious and parasitic diseases complicating pregnancy, unspecified trimester; A74.9 Chlamydial infection, unspecified; O24.410 Gestational diabetes mellitus in pregnancy, diet controlled; O24.420 Gestational diabetes mellitus in childbirth, diet controlled; O76 Abnormality in fetal heart rate and rhythm complicating labor and delivery; O69.81X0 Labor and delivery complicated by cord around neck, without compression, not applicable or unspecified; Z37.0 Single live birth; I99.9 Unspecified disorder of circulatory system; O90.81 Anemia of the puerperium
CPT/HCPCS: 51702; 59025; 59409; 85025; 85027; 86850; 86900; 87491; 87591; 88307; J0690; J1885; J2274; J2405; J2765; J3010; J3105; J3490; J7030; J7121; J9999